=== PATIENT | male | born 1935 | race Caucasian/White ===

== ENCOUNTER 2018-06-21 09:35 | Inpatient (IN) | payer OTHER ==
[2018-06-21 10:23] LABS: Protime INR 1.11
[2018-06-21 10:33] LABS: Absolute Lymphocytes (CBC) 0.6 K/uL (0.7-4.9); Absolute Monocytes 1.6 K/uL (0.1-1.3); Absolute Neutrophil 12.2 K/uL (1.8-8.0); Basophils % 0.4 % (0-1.3); Eosinophils % 1.2 % (0-4.4); Hematocrit 34.8 % (39.6-49.0); Lymphocytes % 4.4 % (15.3-44.8); MPV 8.6 fL (7.6-11.3); Monocytes % 10.6 % (3.3-12.3); RBC Red Blood Cell Count 4.04 M/uL (4.33-5.43)
[2018-06-21 10:36] LABS: ALT/SGPT 15 U/L (12-78); AST/SGOT 11 U/L (15-37); Albumin 2.8 g/dL (3.4-5.0); Alkaline Phosphatase 83 U/L (45-117); BUN Blood Urea Nitrogen 28 mg/dL (7-18); Bicarbonate 39 mmol/L (21-32); Bilirubin Direct 0.1 mg/dL (0-0.2); Bilirubin Total 0.3 mg/dL (0.2-1.0); Glucose Level 110 mg/dL (74-106); Magnesium 2.2 mg/dL (1.8-2.4); NT PRO-BNP 178 pg/mL (<450); Potassium 3.6 mmol/L (3.5-5.1); Protein, Total 6.7 g/dL (6.4-8.2); Sodium Level 144 mmol/L (136-145); Troponin (Emerg Dept Use Only) < 0.02 ng/mL (0.0-0.045)
[2018-06-21] MEDS ORDERED: ALBUTEROL 2.5 MG/3 ML NEB SOL ONE (10:37)
[2018-06-21] MEDS ORDERED: METHYLPREDNISOLONE 125 MG INJ ONE (10:37)
[2018-06-21] MEDS ORDERED: IPRATROPIUM BROM 0.5MG/2.5ML ONE (10:37)
[2018-06-21] MEDS ORDERED: AZITHROMYCIN 500 MG/250 ML BAG ONE (10:38)
[2018-06-21] MEDS ORDERED: FAMOTIDINE 20 MG/2 ML VIAL IV ONE (10:38)
[2018-06-21] MEDS ORDERED: CEFTRIAXONE/SWI 1gm 1 GM/10 ML SYR ONE (10:38)
--- NOTE | 2018-06-21 11:26 | RAD REPORT ---
EXAM DESCRIPTION: RAD - Chest Single View - 06/21/2018 10:14 am CLINICAL HISTORY: Shortness of breath, COPD, bronchitis recent diagnosis COMPARISON: May 24 TECHNIQUE: AP portable chest image was obtained 0959 hours . FINDINGS: Focal parenchymal opacification in the left perihilar region has increased and extends lat erally to the chest wall. Patient has lung markings prominent overall from COPD. Heart and vasculatur e are normal. No measurable pleural effusion and no pneumothorax. No acute bony abnormality seen. No acute aortic findings suspected. IMPRESSION: Increasing lung parenchymal opacification in the mid left lung field suspicious for new or progressive pneumonia. Baseline COPD is present and could mask additional mild interstitial edema or infiltrate.
--- NOTE | 2018-06-21 12:06 | ER ---
Nurse's Notes [facility] Name: Mike Stewart Age: 83 yrs Sex: Male : 1935 Arrival Date: 06/21/2018 Time: 09:35 Bed 6 Private MD: Diagnosis: Chronic obstructive pulmonary disease with (acute) exacerbation;Pneumonia, unspecified organism;Elevated white blood cell count;Weakness Presentation: 06/21 09:37 Presenting complaint: EMS states: Pt c/o SOB x 3 weeks, hx of COPD and dx w/ bronchitis ph 3 weeks ago, completed antibiotics approx a week and a half ago, reports that SOB has been increasingly worse over the past few days, Spo2 84% on 3L home o2, pt also c/o productive cough w/ yellow sputum, Spo2 improved to 97% after neb tx. Transition of care: patient was not received from another setting of care. Onset of symptoms was June 21, 2018. Risk Assessment: Do you want to hurt yourself or someone else? Patient reports no desire to harm self or others. Initial Sepsis Screen: Does the patient meet any 2 criteria? RR > 20 per min. Does the patient have a suspected source of infection? Yes: Productive cough/pneumonia. Care prior to arrival: Medication(s) given: Albuterol Neb x 1. 09:37 Method Of Arrival: EMS: [facility] ph 09:37 Acuity: ARIELA 3 ph Historical: - Allergies: 09:45 LITHIUM DERIVITIVES; ph - Home Meds: 13:44 allopurinol 300 mg Oral tab 1 tab 2 times per day [Active]; anoro ellipta 1 inhalation ph daily [Active]; aspirin 81 mg Oral chew 1 tab once daily [Active]; carvedilol 12.5 mg Oral tab 1 tab 2 times per day [Active]; Wellbutrin 150 mg daily Oral [Active]; Combivent Inhl 8 inhalations daily and prn [Active]; prednisone 10 mg Oral tab 1 tab once daily [Active]; finasteride 5 mg Oral tab 1 tab once daily [Active]; furosemide 40 mg Oral tab 1 tab once daily [Active]; Zocor 80 mg Oral tab daily [Active]; omeprazole 40 mg Oral cpDR 1 cap once daily [Active]; Xanax 0.5 mg Oral tab 1 tab daily [Active]; multac 400mg daily [Active]; - PMHx: 09:45 COPD; Hypertension; Renal Disease; ph - PSHx: 09:45 Tonsillectomy; Appendectomy; hemorrhoidectomy; parathyroidectomy; micro lumbar ph laminectomy; - Immunization history:: Adult Immunizations unknown. - Social history:: Smoking status: Patient/guardian denies using tobacco. - Ebola Screening: : No symptoms or risks identified at this time. Screenin:07 Abuse screen: Denies threats or abuse. Denies injuries from another. Nutritional ph screening: No deficits noted. Tuberculosis screening: No symptoms or risk factors identified. Fall Risk None identified. Assessment: 09:45 General: Appears in no apparent distress. comfortable, Behavior is calm, cooperative, ph appropriate for age, Denies fever. Pain: Denies pain. Neuro: Level of Consciousness is awake, alert, obeys commands, Oriented to person, place, time, situation. Cardiovascular: Denies chest pain, Capillary refill < 3 seconds in bilateral fingers Patient's skin is warm and dry. Rhythm is regular. Respiratory: Reports shortness of breath at rest cough that is productive, Airway is patent Respiratory effort is labored, Respiratory pattern is tachypnea Breath sounds are coarse bilaterally. GI: No signs and/or symptoms were reported involving the gastrointestinal system. Derm: Skin is intact, is healthy with good turgor, Skin is pink, warm \T\ dry. Musculoskeletal: Circulation, motion, and sensation intact. Range of motion: intact in all extremities. 11:05 Reassessment: Patient appears in no apparent distress at this time. Patient and/or ph family updated on plan of care and expected duration. Pain level reassessed. Patient is alert, oriented x 3, equal unlabored respirations, skin warm/dry/pink. ERP at bedside to speak w/ pt and family about being admitted. 12:30 Reassessment: Patient appears in no apparent distress at this time. Patient and/or ph family updated on plan of care and expected duration. Pain level reassessed. Patient is alert, oriented x 3, equal unlabored respirations, skin warm/dry/pink. 13:30 Reassessment: Patient appears in no apparent distress at this time. Patient and/or ph family updated on plan of care and expected duration. Pain level reassessed. Patient is alert, oriented x 3, equal unlabored respirations, skin warm/dry/pink. 14:59 Reassessment: Patient appears in no apparent distress at this time. Patient and/or ph family updated on plan of care and expected duration. Pain level reassessed. Patient is alert, oriented x 3, equal unlabored respirations, skin warm/dry/pink. Pt eating lunch, tolerating well, attempted to call report to 4th floor, receiving nurse unavailable. Vital Signs: 09:42 BP 143 / 67; Pulse 86; Resp 26; Temp 98.3(TE); Pulse Ox 93% on 3 lpm NC; Weight 81.65 ph kg; Height 5 ft. 10 in. (177.80 cm); Pain 0/10; 11:06 BP 127 / 72; Pulse 74; Resp 22; Pulse Ox 95% on 3 lpm NC; ph 12:15 BP 114 / 66; Pulse 76; Resp 22; Pulse Ox 94% on 3 lpm NC; ph 13:37 BP 127 / 67; Pulse 78; Resp 22; Temp 97.8; Pulse Ox 99% on 100% Nebulizer Mask; ph 09:42 Body Mass Index 25.83 (81.65 kg, 177.80 cm) ph ED Course: 09:35 Patient arrived in ED. ph 09:35 Eric Hebert MD is Attending Physician. elier 09:35 Karina Griffin RN is Primary Nurse. ph 09:41 Triage completed. ph 09:45 Arm band placed on. ph 09:45 First set of blood cultures drawn by me. jb1 10:00 Second set of blood cultures drawn by mn. jb1 10:07 EKG done, by diagnostics tech. reviewed by Eric Hebert MD. Initial lab(s) drawn, by mn, sent jb1 to lab. Flu and/or RSV swab sent to lab. Inserted saline lock: 22 gauge in right antecubital area, using aseptic technique. Blood collected. 10:11 X-ray completed. Portable x-ray completed in exam room. Patient tolerated procedure bb2 well. 10:14 XRAY Chest (1 view) In Process Unspecified. EDMS 11:07 Patient has correct armband on for positive identification. Bed in low position. Call ph light in reach. Side rails up X 1. Pulse ox on. NIBP on. Warm blanket given. 12:01 Lalo Carmona MD is Hospitalizing Provider. elier 14:58 No provider procedures requiring assistance completed. Patient admitted, IV remains in ph place. Administered Medications: 10:40 Drug: Albuterol - atroVENT (3:1) (2.5 mg - 0.5 mg) 3 ml Route: Nebulizer; ph 15:03 Follow up: Response: No adverse reaction ph 10:40 Drug: SOLU-Medrol 125 mg Route: IVP; Site: right antecubital; ph 11:30 Follow up: Response: No adverse reaction ph 10:42 Drug: Rocephin - (cefTRIAXone) 1 grams Route: IVPB; Infused Over: 30 mins; Site: right ph antecubital; 11:15 Follow up: Response: No adverse reaction; IV Status: Completed infusion ph 10:42 Drug: Pepcid 20 mg Route: IVP; Site: right antecubital; ph 15:02 Follow up: Response: No adverse reaction ph 11:30 Drug: Zithromax 500 mg Route: IVPB; Infused Over: 1 hrs; Site: right antecubital; ph 12:45 Follow up: Response: No adverse reaction; IV Status: Completed infusion ph 13:27 Drug: Xopenex 2.5 mg Route: Inhalation; ph 15:02 Follow up: Response: No adverse reaction ph 13:27 Drug: Decadron - Dexamethasone 10 mg Route: IVP; Site: right antecubital; ph 15:01 Follow up: Response: No adverse reaction ph Outcome: 12:04 Decision to Hospitalize by Provider. [facility] 14:59 Condition: stable ph 15:25 Patient left the ED. ph 15:25 Admitted to Tele via stretcher, with oxygen, with chart. ph 15:25 Instructed on the need for admit. Signatures: Dispatcher [employer] EDMonster Martinez1 Eric Hebert MD MD cha Hall, Patricia, RN RN Umm Christensen2
--- NOTE | 2018-06-21 12:06 | EDPHYS ---
Physician Documentation [facility] Name: Mike Stewart Age: 83 yrs Sex: Male : 1935 Arrival Date: 06/21/2018 Time: 09:35 Bed 6 Private MD: STEFFEN Physician Eric Hebert Historical: - Allergies: 06/21 09:45 LITHIUM DERIVITIVES; ph - Home Meds: 13:44 allopurinol 300 mg Oral tab 1 tab 2 times per day [Active]; anoro ellipta 1 inhalation ph daily [Active]; aspirin 81 mg Oral chew 1 tab once daily [Active]; carvedilol 12.5 mg Oral tab 1 tab 2 times per day [Active]; Wellbutrin 150 mg daily Oral [Active]; Combivent Inhl 8 inhalations daily and prn [Active]; prednisone 10 mg Oral tab 1 tab once daily [Active]; finasteride 5 mg Oral tab 1 tab once daily [Active]; furosemide 40 mg Oral tab 1 tab once daily [Active]; Zocor 80 mg Oral tab daily [Active]; omeprazole 40 mg Oral cpDR 1 cap once daily [Active]; Xanax 0.5 mg Oral tab 1 tab daily [Active]; multac 400mg daily [Active]; - PMHx: 09:45 COPD; Hypertension; Renal Disease; ph - PSHx: 09:45 Tonsillectomy; Appendectomy; hemorrhoidectomy; parathyroidectomy; micro lumbar ph laminectomy; - Immunization history:: Adult Immunizations unknown. - Social history:: Smoking status: Patient/guardian denies using tobacco. - Ebola Screening: : No symptoms or risks identified at this time. Vital Signs: 09:42 BP 143 / 67; Pulse 86; Resp 26; Temp 98.3(TE); Pulse Ox 93% on 3 lpm NC; Weight 81.65 ph kg; Height 5 ft. 10 in. (177.80 cm); Pain 0/10; 11:06 BP 127 / 72; Pulse 74; Resp 22; Pulse Ox 95% on 3 lpm NC; ph 12:15 BP 114 / 66; Pulse 76; Resp 22; Pulse Ox 94% on 3 lpm NC; ph 13:37 BP 127 / 67; Pulse 78; Resp 22; Temp 97.8; Pulse Ox 99% on 100% Nebulizer Mask; ph 09:42 Body Mass Index 25.83 (81.65 kg, 177.80 cm) ph MDM: 09:35 Patient medically screened. [facility] 06/21 09:39 Order name: Basic Metabolic Panel [facility] 06/21 09:39 Order name: CBC with Diff [facility] 06/21 09:39 Order name: LFT's; Complete Time: 11:44 [facility] 06/21 09:39 Order name: Magnesium; Complete Time: 11:44 [facility] 06/21 09:39 Order name: NT PRO-BNP; Complete Time: 11:44 [facility] 06/21 09:39 Order name: PT-INR; Complete Time: 11:44 [facility] 06/21 09:39 Order name: Troponin (emerg Dept Use Only); Complete Time: 11:44 [facility] 06/21 09:39 Order name: Blood Culture Adult (2) [facility] 06/21 09:39 Order name: Procalcitonin; Complete Time: 11:44 [facility] 06/21 09:39 Order name: Lactate; Complete Time: 11:44 [facility] 06/21 09:39 Order name: Influenza Screen (a \T\ B); Complete Time: 11:44 [facility] 06/21 09:39 Order name: Urine Culture [facility] 06/21 09:39 Order name: Basic Metabolic Panel; Complete Time: 11:44 [facility] 06/21 09:39 Order name: CBC with Automated Diff; Complete Time: 11:44 [facility] 06/21 09:39 Order name: XRAY Chest (1 view); Complete Time: 11:44 [facility] 06/21 09:39 Order name: EKG; Complete Time: 09:40 [facility] 06/21 09:39 Order name: Cardiac monitoring; Complete Time: 10:08 [facility] 06/21 09:39 Order name: EKG - Nurse/Tech; Complete Time: 10:08 [facility] 06/21 09:39 Order name: IV Saline Lock; Complete Time: 10:08 [facility] 06/21 09:39 Order name: Labs collected and sent; Complete Time: 10:08 [facility] 06/21 09:39 Order name: O2 Per Protocol; Complete Time: 10:08 [facility] 06/21 09:39 Order name: O2 Sat Monitoring; Complete Time: 10:08 [facility] 06/21 12:57 Order name: Diet Heart Healthy; Complete Time: 12:58 ph Administered Medications: 10:40 Drug: Albuterol - atroVENT (3:1) (2.5 mg - 0.5 mg) 3 ml Route: Nebulizer; ph 15:03 Follow up: Response: No adverse reaction ph 10:40 Drug: SOLU-Medrol 125 mg Route: IVP; Site: right antecubital; ph 11:30 Follow up: Response: No adverse reaction ph 10:42 Drug: Rocephin - (cefTRIAXone) 1 grams Route: IVPB; Infused Over: 30 mins; Site: right ph antecubital; 11:15 Follow up: Response: No adverse reaction; IV Status: Completed infusion ph 10:42 Drug: Pepcid 20 mg Route: IVP; Site: right antecubital; ph 15:02 Follow up: Response: No adverse reaction ph 11:30 Drug: Zithromax 500 mg Route: IVPB; Infused Over: 1 hrs; Site: right antecubital; ph 12:45 Follow up: Response: No adverse reaction; IV Status: Completed infusion ph 13:27 Drug: Xopenex 2.5 mg Route: Inhalation; ph 15:02 Follow up: Response: No adverse reaction ph 13:27 Drug: Decadron - Dexamethasone 10 mg Route: IVP; Site: right antecubital; ph 15:01 Follow up: Response: No adverse reaction ph Disposition: 06/21/18 12:04 Hospitalization ordered by Lalo Carmona for Inpatient Admission. Preliminary diagnosis are Chronic obstructive pulmonary disease with (acute) exacerbation, Pneumonia, unspecified organism, Elevated white blood cell count, Weakness. - Bed requested for Telemetry/MedSurg (Inpatient). - Status is Inpatient Admission. ph - Condition is Fair. - Problem is new. - Symptoms have improved. UTI on Admission? No Signatures: Dispatcher [employer] Maryann Wilcox RN RN dw Anderson, Corey, MD MD cha Hall, Patricia, RN RN ph Corrections: (The following items were deleted from the chart) 13:12 12:04 Hospitalization Ordered by Lalo Carmona MD for Inpatient Admission. Preliminary dw diagnosis is Chronic obstructive pulmonary disease with (acute) exacerbation; Pneumonia, unspecified organism; Elevated white blood cell count; Weakness. Bed requested for Telemetry/MedSurg (Inpatient). Status is Inpatient Admission. Condition is Fair. Problem is new. Symptoms have improved. UTI on Admission? No. [facility] 15:25 13:12 06/21/2018 12:04 Hospitalization Ordered by Lalo Carmona MD for Inpatient Admission. Preliminary diagnosis is Chronic obstructive pulmonary disease with (acute) exacerbation; Pneumonia, unspecified organism; Elevated white blood cell count; Weakness. Bed requested for Telemetry/MedSurg (Inpatient). Status is Inpatient Admission. Condition is Fair. Problem is new. Symptoms have improved. UTI on Admission? No.
[2018-06-21] MEDS ORDERED: DEXAMETHASONE 10 MG/ML VIAL ONE (13:28)
[2018-06-21] MEDS ORDERED: LEVALBUTEROL 1.25 MG/3 ML NEB ONE (13:29)
--- NOTE | 2018-06-21 14:46 | EKG ---
Test Date: 2018-06-21 Test Time: 09:44:58 [place] Husker: MARYLIN MEASUREMENT RESULTS: Intervals: Rate: 80 CO: 258 QRSD: 102 QT: 362 QTc: 417 [place]: P: 61 CO: 258 QRS: 61 T: 86 INTERPRETIVE STATEMENTS: Sinus rhythm with 1st degree AV block Otherwise normal ECG Compared to ECG 05/26/2017 06:33:49 No significant changes Electronically Signed On 06-21-18 14:44:17 IP NETWORK ARCHITECT by Reji Curiel
[2018-06-21] MEDS: IPRATROPIUM BROM 0.5MG/2.5ML NEB SCH ×2 (15:52→19:55)
[2018-06-21] MEDS ORDERED: ACETAMINOPHEN 500 MG TAB PO PRN (15:52)
[2018-06-21] MEDS: ALBUTEROL 2.5 MG/3 ML NEB SOL NEB SCH ×2 (15:52→19:55)
[2018-06-21 16:21] VITALS: BMI 25.9
[2018-06-21] MEDS: HEPARIN 5000 UNIT/ML 1 ML VIAL SQ SCH (17:27)
[2018-06-21] MEDS ORDERED: ALPRAZOLAM 0.5 MG TABLET PO PRN (18:48)
[2018-06-21] MEDS ORDERED: Levofloxacin500mg IV 500 MG/100 ML BAG IV SCH (19:00)
--- NOTE | 2018-06-21 19:59 | P.HP ---
Certification for Inpatient Patient admitted to: Inpatient Practitioner: I am a practitioner with admitting privileges, knowledge of patient current condition, hospital course, and medical plan of care. Services: Services provided to patient in accordance with Admission requirements found in Title 42 Section 412.3 of the Code of Federal Regulations Patient History Date of Service: 06/21/18 Primary Care Provider: Dr. Juarez Reason for admission: Shortness of breath History of Present Illness: This is an 83 yr old Male with a history of COPD on 2L Home oxygen admitted for shortness of breath. Per patient, he has had progressively worsening shortness of breath for the past 4-5 days where his regular COPD medications have not been helping. On the morning of admission, pt states that he felt like he was not able to catch his breath which is what brought him to the ED. He is also endorsing feeling a little unbalanced for the fast few days. States that when he stands up, he is a little shaky on his feet, which is new for him. Positive for cough. Negative for chest pain, headache, vision changes, rash, GI or problems. In the ED, he was satting a little low, and he was found to have a left lobe pneumonia on his chest xray. At the time of my exam, he was AAOx3, in no acute distress and his breathing had improved. Allergies lithium Adverse Reaction (Verified 01/24/16 10:59) Itching/Hives/Rash LITHIUM DERIVITIVES Allergy (Intermediate, Uncoded 01/24/16 10:59) Anaphylaxis Home Medications: Aspirin Chewable [Aspirin Chewable*] 81 mg PO DAILY 02/03/15 Dronedarone [Multaq*] 400 mg PO BID 02/03/15 Finasteride 5 mg PO DAILY 02/03/15 Furosemide [Lasix] 40 mg PO DAILY 02/03/15 buPROPion HCl [Wellbutrin Sr] 150 mg PO DAILY 02/03/15 Allopurinol [Zyloprim*] 300 mg PO BID 01/17/16 Carvedilol [Coreg*] 12.5 mg PO BID 01/17/16 predniSONE [Deltasone*] 10 mg PO DAILY 01/17/16 Simvastatin [Zocor] 1 tab PO BEDTIME 05/25/17 Umeclidinium Brm/Vilanterol Tr [Anoro Ellipta 62.5-25 Mcg INH] 1 inhaler IH DAILY 05/25/17 ALPRAZolam [Xanax] 0.5 mg PO BEDTIME PRN 06/21/18 Ipratropium/Albuterol Sulfate [Combivent Respimat Inhal [place]] 1 gm IH Q2H PRN 06/21/18 Omeprazole [Prilosec] 1 tab PO DAILY 06/21/18 - Past Medical/Surgical History Has patient received pneumonia vaccine in the past: Yes Diabetic: No -: HTN -: COPD O2 dependent -: renal disease -: htn -: high cholesterol -: gerd -: tonsillectomy -: appy -: hemorrhoidectomy -: parothyroidectomy -: micro lumbar laminectomy - Family History Father -: Other (see notes) Notes: aortic rupture Mother -: Heart disease - Social History Smoking Status: Never smoker Alcohol use: No CD- Drugs: No Caffeine use: Yes Place of Residence: Home Review of Systems 10-point ROS is otherwise unremarkable Physical Examination - Vital Signs Temperature: 97.9 F Blood Pressure: 133/63 Pulse: 83 Respirations: 20 Pulse Ox (%): 93 - Physical Exam General: Alert, In no apparent distress, Oriented x3 HEENT: Atraumatic, PERRLA, Mucous membr. moist/pink, EOMI, Sclerae nonicteric Neck: Supple, 2+ carotid pulse no bruit, No LAD, Without JVD or thyroid abnormality Respiratory: Dull, Crackles/rales, Expiratory wheezes Cardiovascular: Regular rate/rhythm, Normal S1 S2 Gastrointestinal: Normal bowel sounds, No tenderness Musculoskeletal: No tenderness Integumentary: No rashes Neurological: Normal gait, Normal speech, Normal strength at 5/5 x4 extr, Normal tone, Normal affect Lymphatics: No axilla or inguinal lymphadenopathy - Studies Laboratory Data (last 24 hrs) 06/21/18 10:00: PT 13.1 H, INR 1.11 06/21/18 10:00: WBC 14.6 H, Hgb 10.5 L, Hct 34.8 L, Plt Count 224 06/21/18 10:00: Sodium 144, Potassium 3.6, BUN 28 H, Creatinine 1.32 H, Glucose 110 H, Magnesium 2.2, Total Bilirubin 0.3, AST 11 L, ALT 15, Alkaline Phosphatase 83 Microbiology Data (last 24 hrs): 06/21/18 10:00 Nasopharnyx Influenza Type A Antigen Screen - Final 06/21/18 10:00 Nasopharnyx Influenza Type B Antigen Screen - Final Assessment and Plan - Problems (Diagnosis) (1) COPD (chronic obstructive pulmonary disease) Onset Date: 01/18/16 Current Visit: No Status: Chronic Qualifiers: COPD type: COPD with acute exacerbation Qualified Code(s): J44.1 - Chronic obstructive pulmonary disease with (acute) exacerbation (2) Pneumonia Onset Date: 05/26/17 Current Visit: No Status: Acute (3) Respiratory distress Onset Date: 02/05/15 Current Visit: No Status: Acute (4) Hypertension Current Visit: Yes Status: Chronic Qualifiers: Hypertension type: essential hypertension Qualified Code(s): I10 - Essential (primary) hypertension (5) Chronic kidney disease Current Visit: Yes Status: Chronic Qualifiers: Chronic kidney disease stage: unspecified stage Qualified Code(s): N18.9 - Chronic kidney disease, unspecified (6) GERD (gastroesophageal reflux disease) Current Visit: Yes Status: Chronic Qualifiers: Esophagitis presence: esophagitis presence not specified Qualified Code(s) : K21.9 - Gastro-esophageal reflux disease without esophagitis - Plan This is an 83 yr old male with: Pneumonia (Acute 05/26/17) J18.9 IV antibiotics Oxygen as needed COPD (chronic obstructive pulmonary disease) (Chronic 01/18/16) J44.9 IV steroids, nebulizer treatments, and oxygen as needed Respiratory distress (Acute 02/05/15) R06. Improved. Almost back to baseline oxygen Hypertension (Chronic) I10 Stable, will restart home medications Chronic kidney disease (Chronic) N18.9 Unsure of stage or baseline Will continue to monitor creatinine with am labs Avoid nephrotoxic agents GERD (gastroesophageal reflux disease) (Chronic) K21.9 Stable, start home medications DVT prophylaxis: Lovenox GI prophylaxis: protonix Diet: Heart healthy Dispo: Admit to floor with tele. Monitor, pending symptomatic improvement. - Advance Directives Does patient have a Living Will: No Does patient have a Durable POA for Healthcare: No
[2018-06-21] MEDS: DRONEDARONE 400 MG TAB PO SCH (20:40)
[2018-06-21] MEDS: ALLOPURINOL 300 MG TAB PO SCH (20:41)
[2018-06-21] MEDS: CARVEDILOL 12.5 MG TAB PO SCH (20:43)
[2018-06-21] MEDS ORDERED: POTASSIUM CL SA 10 MEQ TAB PO ONE (21:00)
[2018-06-21] MEDS ORDERED: ATORVASTATIN 40 MG TAB PO SCH (21:00)
[2018-06-22] MEDS: HEPARIN 5000 UNIT/ML 1 ML VIAL SQ SCH ×2 (00:16→08:57)
[2018-06-22] MEDS: METHYLPREDNISOLONE 125 MG INJ IV SCH ×3 (00:17→11:15)
[2018-06-22] MEDS: ALBUTEROL 2.5 MG/3 ML NEB SOL NEB SCH ×3 (02:15→13:38)
[2018-06-22] MEDS: IPRATROPIUM BROM 0.5MG/2.5ML NEB SCH ×3 (02:15→13:38)
[2018-06-22 05:54] LABS: Absolute Lymphocytes (CBC) 0.4 K/uL (0.7-4.9); Absolute Monocytes 0.2 K/uL (0.1-1.3); Absolute Neutrophil 11.3 K/uL (1.8-8.0); Basophils % 0.1 % (0-1.3); Lymphocytes % 3.3 % (15.3-44.8); MPV 8.6 fL (7.6-11.3); Monocytes % 1.7 % (3.3-12.3); RBC Red Blood Cell Count 3.84 M/uL (4.33-5.43)
[2018-06-22 06:15] LABS: Albumin 2.5 g/dL (3.4-5.0); Bilirubin Total 0.2 mg/dL (0.2-1.0); Potassium 4.6 mmol/L (3.5-5.1); Protein, Total 6.2 g/dL (6.4-8.2)
[2018-06-22] MEDS ORDERED: PANTOPRAZOLE 40MG TABLET PO SCH (06:30)
[2018-06-22 07:16] LABS: Platelet Estimate ADEQ
[2018-06-22 07:17] LABS: Blood Morphology Comment NOT SEEN (NOT SEEN)
[2018-06-22 08:24] LABS: Urine Appearance CLEAR; Urine Bilirubin NEGATIVE (NEG); Urine Blood TRACE (NEG); Urine Color YELLOW; Urine Glucose NEGATIVE (NEG); Urine Protein NEGATIVE (NEG); Urine Urobilinogen 0.2 mg/dL (0.2-1.0)
[2018-06-22 08:27] LABS: Urine Microscopic Reflex ORDER UMIC
[2018-06-22 08:37] LABS: Urine Bacteria NONE SEEN /HPF (NONE SEEN); Urine Culture Reflex Order NOT NEEDED
[2018-06-22] MEDS: DRONEDARONE 400 MG TAB PO SCH (08:57)
[2018-06-22] MEDS: ALLOPURINOL 300 MG TAB PO SCH (08:58)
[2018-06-22] MEDS: CARVEDILOL 12.5 MG TAB PO SCH (08:58)
[2018-06-22] MEDS ORDERED: HOME MED 1 EA UNK (Omeprazole [Prilosec] 1 TAB) PO SCH (09:00)
[2018-06-22] MEDS ORDERED: FUROSEMIDE 20 MG TABLET PO SCH (09:00)
[2018-06-22] MEDS ORDERED: BUPROPRION HCL S.R. 150MG TAB PO SCH (09:00)
[2018-06-22] MEDS ORDERED: FINASTERIDE 5 MG TAB PO SCH (09:00)
[2018-06-22] MEDS ORDERED: ASPIRIN 81 MG CHEWABLE TABLET PO SCH (09:00)
[2018-06-22 12:41] VITALS: BP 130/69; TEMP 97.9
[2018-06-22 13:57] VITALS: O2SAT 92
--- NOTE | 2018-06-22 15:22 | DS ---
Discharge Diagnoses: 1. Chronic obstructive pulmonary disease exacerbation, improved. 2. ? pneumonia. 3. Respiratory distress secondary to chronic obstructive pulmonary disease exacerbation. 4. Hypertension. 5. Chronic renal insufficiency. 6. Acid reflux. 7. Overweight. Consult: None. Procedure: Chest x-ray done on admission showed increasing lung parenchymal opacification in the mid left lung field positive for pneumoniae, baseline COPD present. History Of Present Illness: Please refer to Dr. Carmona admission note from yesterday. Hospital Course: Initially, the patient presented with progressive shortness of breath and x-ray showed questionable left lung infiltrate. The patient was started on IV antibiotic with Levaquin as well as the Solu-Medrol. The patient felt much better today and he demanded to go home. He continues to be on oxygen , but he has no oxygen at home. He is followed by Dr. Ross as outpatient. So, we discharge patient on Levaquin 500 mg for 7 days. We will continue prednisone 10 mg at baseline. He will follow up with Dr. Ross in this coming week to make sure he is back to his baseline. Overnight, the patient did not spike any fever. His temperature max was 97.2 Discharge Physical Examination: Current Vital Signs: Blood pressure 130/69, respiratory rate 18, pulse 74, temperature 97.9. General: The patient is alert and oriented x3. He does not look in any distress. HEENT: Atraumatic and normocephalic. PERRLA. Oral mucosa is moist. Neck: Supple. No JVD. Chest: Clear to auscultation. There is no expiratory wheezing. No crackles. Heart: Regular rate and rhythm. S1 and S2 normal. No gallop or murmur. Abdomen: Soft, nontender. No masses. No hepatosplenomegaly. Positive bowel sounds. Extremities: No clubbing, cyanosis, or edema. No calf tenderness. Neurologic: Grossly intact. Discharge Condition: Stable. Discharge Diet: Cardiac. Discharge Followup: With Dr. Ross this week. Follow up with his primary care physician in 1 week. Discharge Activity: As tolerated. Discharge Medications: Levaquin 500 mg orally once a day for 7 days. Otherwise take home medication, see list on discharge summary. VS reviewed General: He is alert and oriented x3. Does not look in any distress. HEENT: Atraumatic and normocephalic. PERRLA. Oral mucosa is moist. Neck: Supple. No JVD. Chest: Clear to auscultation Heart: Regular rate and rhythm. S1, S2 normal. No S3 or S4. Abdomen: Soft and obese. Positive bowel sounds. Extremities: No clubbing or cyanosis. no edema stasis dermatitis noted. Neurologic: Grossly intact. PHILIP/MANOJ Voice ID: [id number] Report ID: [id number] MTDD
[2018-06-22] MEDS ORDERED: Levofloxacin 250mg IV 250 MG/50 ML BAG IV SCH (19:00)
== END 2018-06-22 14:58 | disposition home or self-care (01) | DRG 190 ==
LOC: ER 09:35 → ERHOLD 12:36 → 4TH 15:12
PROVIDERS: ADMIT Family Medicine; ATTEND Internal Medicine
DX: J44.0 Chronic obstructive pulmonary disease with (acute) lower respiratory infection (principal); J18.9 Pneumonia, unspecified organism; J44.1 Chronic obstructive pulmonary disease with (acute) exacerbation; R06.03 Acute respiratory distress; I12.9 Hypertensive chronic kidney disease with stage 1 through stage 4 chronic kidney disease, or unspecified chronic kidney disease; N18.9 Chronic kidney disease, unspecified; K21.9 Gastro-esophageal reflux disease without esophagitis; E66.3 Overweight
CPT/HCPCS: 36415; 71045; 80048; 80053; 80076; 81003; 81015; 83605; 83735; 83880; 84145; 84484; 85025; 85610; 87040; 87086; 87088; 87804; 93005; 94640; 94760; 96365; 96367; 96375; 99285; J0456; J0696; J1100; J1644; J2930

== ENCOUNTER 2018-09-07 09:30 | Inpatient (IN) | payer OTHER ==
[2018-09-07] MEDS ORDERED: IPRATROPIUM BROM 0.5MG/2.5ML ONE (09:50)
[2018-09-07] MEDS ORDERED: METHYLPREDNISOLONE 40 MG INJ ONE (09:50)
[2018-09-07] MEDS ORDERED: ALBUTEROL 2.5 MG/3 ML NEB SOL ONE (09:50)
[2018-09-07 09:54] LABS: Absolute Lymphocytes (CBC) 0.7 K/uL (0.7-4.9); Absolute Monocytes 0.8 K/uL (0.1-1.3); Absolute Neutrophil 13.2 K/uL (1.8-8.0); Basophils % 0.5 % (0-1.3); Eosinophils % 1.1 % (0-4.4); Lymphocytes % 4.7 % (15.3-44.8); MPV 8.3 fL (7.6-11.3); Monocytes % 5.2 % (3.3-12.3); RBC Red Blood Cell Count 4.28 M/uL (4.33-5.43)
[2018-09-07 09:55] LABS: Protime INR 1.08
--- NOTE | 2018-09-07 10:05 | RAD REPORT ---
EXAM DESCRIPTION: RAD - Chest Single View - 09/07/2018 9:50 am CLINICAL HISTORY: SOB Chest pain. COMPARISON: Chest Single View dated 06/21/2018; Chest Pa And Lat (2 Views) dated 05/24/2018; Chest S sarah View dated 05/26/2017; Chest Single View dated 05/25/2017 FINDINGS: Portable technique limits examination quality. Emphysematous changes are present with ill-defined opacities in both lung bases and left perihilar mo derate-size opacity, appearing quite similar to comparative studies. The heart is normal in size. No displaced fractures.CT chest followup would be useful for further evaluation of the left perihilar op acity.
[2018-09-07 10:13] LABS: ALT/SGPT 19 U/L (12-78); AST/SGOT 18 U/L (15-37); Albumin 2.9 g/dL (3.4-5.0); Alkaline Phosphatase 90 U/L (45-117); BUN Blood Urea Nitrogen 27 mg/dL (7-18); Bicarbonate 39 mmol/L (21-32); Bilirubin Direct < 0.1 mg/dL (0-0.2); Bilirubin Total 0.2 mg/dL (0.2-1.0); Glucose Level 197 mg/dL (74-106); NT PRO-BNP 448 pg/mL (<450); Potassium 4.2 mmol/L (3.5-5.1); Protein, Total 6.6 g/dL (6.4-8.2); Sodium Level 145 mmol/L (136-145); Troponin (Emerg Dept Use Only) < 0.02 ng/mL (0.0-0.045)
[2018-09-07 10:23] LABS: Anisocytosis 1+; Blood Morphology Comment NOTED (NOT SEEN); Hypochromasia 2+; Ovalocytes 1+; Platelet Estimate ADEQ; Polychromasia 1+; Urine White Blood Cell Casts OK
--- NOTE | 2018-09-07 11:20 | RAD REPORT ---
EXAM DESCRIPTION: CT - Thorax W/ Con CLINICAL HISTORY: Chest pain shortness of breath COMPARISON: THORAX WO CONTRAST dated 12/25/2014; Chest Single View dated 09/07/2018 FINDINGS: Prominent COPD is seen. Linear scarring is present in both upper lobes. Soft tissue mass i s present measuring 3.8 x 3.4 cm adjacent to the left hilum containing internal area of lucency. Elenita ins of the lesion are spiculated. No pleural thickening or pleural effusion. No pneumothorax. No axillary, mediastinal or hilar adenopathy. Prominent aortic atherosclerosis. No concerning bony finding. Several right renal cysts identified. All CT scans are performed using dose optimization technique as appropriate and may include automated exposure control or mA/KV adjustment according to patient size. IMPRESSION: Spiculated soft tissue mass (3.8 x 3.4 cm) is seen adjacent to the left hilum with inter nal cavitary component.Most likely, this represents a cavitary neoplasm. Bronchoscopy followup would be suggested.
[2018-09-07] MEDS ORDERED: NA CHLORIDE 0.9% 250 ML ONE (11:21)
--- NOTE | 2018-09-07 12:17 | EDPHYS ---
Physician Documentation [facility] Name: Mike Stewart Age: 83 yrs Sex: Male : 1935 Arrival Date: 09/07/2018 Time: 09:29 Bed 8 Private MD: ED Physician Woody Gamez HPI: 09/07 09:32 This 83 yrs old Male presents to ER via Unassigned with complaints of cp Shortness Of Breath. 09:32 The patient has shortness of breath at rest. Onset: The symptoms/episode began/occurred cp yesterday. 09:32 Duration: The symptoms are continuous, and are steadily getting worse. The patient's cp shortness of breath is aggravated by light activity, talking. Associated signs and symptoms: Pertinent negatives: chest pain, diaphoresis, fever, hemoptysis. 09:32 Severity of symptoms: in the emergency department the symptoms are unchanged despite cp home interventions. Historical: - Allergies: 09:43 LITHIUM DERIVITIVES; bp - Home Meds: 09:43 carvedilol 12.5 mg Oral tab 1 tab 2 times per day [Active]; Wellbutrin 150 mg daily bp Oral 2 tabs daily [Active]; Zocor 80 mg Oral tab daily [Active]; multac 400mg daily [Active]; omeprazole 40 mg Oral cpDR 1 cap once daily [Active]; aspirin 81 mg Oral chew 1 tab once daily [Active]; Combivent Inhl 8 inhalations daily and prn [Active]; prednisone 10 mg Oral tab 1 tab once daily [Active]; finasteride 5 mg Oral tab 1 tab once daily [Active]; furosemide 40 mg Oral tab 1 tab once daily [Active]; allopurinol 300 mg Oral tab 1 tab 2 times per day [Active]; Xanax 0.5 mg Oral tab 1 tab daily [Active]; anoro ellipta 1 inhalation daily [Active]; - PMHx: 09:43 COPD; Hypertension; Renal Disease; bp - PSHx: 09:43 Tonsillectomy; Appendectomy; HEMORRHOIDECTOMY; LUMBAR LAMINECTOMY; PAROTIDECTOMY; bp - Immunization history:: Adult Immunizations up to date. - Social history:: Smoking status: Patient/guardian denies using tobacco. - Ebola Screening: : Patient negative for fever greater than or equal to 101.5 degrees Fahrenheit, and additional compatible Ebola Virus Disease symptoms Patient denies exposure to infectious person Patient denies travel to an Ebola-affected area in the 21 days before illness onset No symptoms or risks identified at this time. ROS: 09:33 Eyes: Negative for injury, pain, redness, and discharge. cp 09:33 Constitutional: Negative for body aches, chills, fever, poor PO intake. 09:33 ENT: Negative for drainage from ear(s), ear pain, sore throat, difficulty swallowing, cp difficulty handling secretions. 09:33 Cardiovascular: Negative for chest pain, edema, palpitations. 09:33 Respiratory: Positive for shortness of breath, at rest. Negative for hemoptysis. 09:33 Abdomen/GI: Negative for abdominal pain, vomiting, diarrhea, constipation, black/tarry stool, rectal bleeding. 09:33 Back: Negative for pain at rest, pain with movement. 09:33 Skin: Negative for cellulitis, rash. 09:33 Neuro: Negative for altered mental status, headache, syncope, weakness. 09:33 All other systems are negative. cp Exam: 09:36 ECG was reviewed by the Attending Physician. cp 09:40 Constitutional: The patient appears alert, awake, non-diaphoretic, non-toxic, well cp developed, well nourished, in obvious distress, mildly distressed. 09:40 Head/Face: Normocephalic, atraumatic. cp 09:40 Eyes: Periorbital structures: appear normal, Pupils: equal, round, and reactive to cp light and accomodation, Extraocular movements: intact throughout, Conjunctiva: normal, no exudate, no injection, Sclera: no appreciated abnormality, Lids and lashes: appear normal, bilaterally. 09:40 ENT: External ear(s): are unremarkable, Ear canal(s): are normal, clear, TM's: cp dullness, bilaterally, Nose: is normal, Mouth: Lips: moist, Oral mucosa: pink and intact, moist, Posterior pharynx: is normal, airway is patent, no erythema, no exudate. 09:40 Neck: ROM/movement: is normal, is supple, without pain, no range of motions limitations, no nuchal rigidity. 09:40 Chest/axilla: Inspection: normal, Palpation: is normal, no crepitus, no tenderness. 09:40 Cardiovascular: Rate: normal, Rhythm: regular, Edema: is not appreciated, JVD: is not appreciated. 09:40 Respiratory: mild respiratory distress is noted, Respirations: labored breathing, that is mild, Breath sounds: decreased breath sounds, that are moderate, throughout. 09:40 Abdomen/GI: Inspection: obese Palpation: abdomen is soft and non-tender, in all quadrants. 09:40 Back: pain, is absent, ROM is normal. 09:40 Skin: cellulitis, is not appreciated, no rash present. 09:40 Neuro: Orientation: to person, place \T\ time. Mentation: is normal, Cerebellar function: is grossly normal, Motor: moves all fours, strength is normal, Sensation: is normal. Vital Signs: 09:31 Pulse Ox 97% on 4 lpm NC; hj 09:31 BP 116 / 67; Pulse 74; Resp 18; Temp 97; Pulse Ox 83% on R/A; Weight 81.65 kg; Height 5 bp ft. 10 in. (177.80 cm); 11:30 BP 132 / 72; Pulse 60; Resp 19; Pulse Ox 97% on 2 lpm NC; bp 09:31 Body Mass Index 25.83 (81.65 kg, 177.80 cm) bp MDM: 09:32 Patient medically screened. cp 11:35 Data reviewed: vital signs, nurses notes, lab test result(s), EKG, radiologic studies, cp plain films, and as a result, I will admit patient. 11:35 Test interpretation: by ED physician or midlevel provider: ECG, plain radiologic cp studies. Response to treatment: the patient's symptoms have mildly improved after treatment. 11:40 Physician consultation: A Larry VEGAS was called at 11:40, left message on voicemail. cp 12:15 Physician consultation: A Larry VEGAS was called at 12:15, was contacted at 12:15, cp regarding admission, to the telemetry unit. patient's condition. 09/07 09:35 Order name: Basic Metabolic Panel; Complete Time: 10:28 cp 09/07 10:29 Interpretation: Normal except: CO2 39; GLUC 197; BUN 27; CRE 1.37; GFR 49. cp 09/07 09:35 Order name: CBC with Diff; Complete Time: 10:28 cp 09/07 10:07 Interpretation: Normal except: WBC 14.9; RBC 4.28; HGB 10.9; HCT 37.0; MCH 25.4; MCHC cp 29.4; RDW 17.8; ZAKI% 88.5; LYM% 4.7; NEUT A 13.2. / 09:35 Order name: LFT's; Complete Time: 10:28 cp 03/ 10:29 Interpretation: Normal except: ALB 2.9; GLOB 3.7; A/G 0.8. cp 09/07 09:35 Order name: Magnesium; Complete Time: 10:28 cp / 09:35 Order name: NT PRO-BNP; Complete Time: 10:28 cp 09/07 09:35 Order name: PT-INR; Complete Time: 10:07 cp 09/07 09:35 Order name: Troponin (emerg Dept Use Only); Complete Time: 10:28 cp 09/07 09:35 Order name: Blood Culture Adult (2) cp 09/07 09:35 Order name: Procalcitonin; Complete Time: 10:28 cp 09/07 09:35 Order name: Lactate; Complete Time: 10:28 cp 09/07 09:35 Order name: Influenza Screen (a \T\ B); Complete Time: 10:28 cp 12 10:00 Order name: CBC Smear Scan; Complete Time: 10:28 EDMS / 12:23 Order name: Troponin I EDHI 09/07 12:23 Order name: Troponin I EDHI 09/07 09:35 Order name: XRAY Chest (1 view); Complete Time: 10:28 cp 09/07 09:35 Order name: EKG; Complete Time: 09:36 cp 09/07 09:35 Order name: Cardiac monitoring; Complete Time: 09:37 cp 09/07 09:35 Order name: EKG - Nurse/Tech; Complete Time: 09:37 cp 09/07 09:35 Order name: IV Saline Lock; Complete Time: 09:45 cp / 09:35 Order name: Labs collected and sent; Complete Time: 09:45 cp / 09:35 Order name: O2 Per Protocol; Complete Time: 09:37 cp 09/07 09:35 Order name: O2 Sat Monitoring; Complete Time: 09:37 cp 09/07 09:35 Order name: BIPAP 09/07 10:31 Order name: CT Chest W/ Con; Complete Time: 11:27 cp 0312 12:17 Order name: Diet Regular; Complete Time: 12:17 cp EC:36 Rate is 70 beats/min. Rhythm is regular. MD interval is prolonged at 282 msec. QRS cp interval is prolonged at 104 msec. QT interval is normal. Interpreted by me. Reviewed by me. Administered Medications: 09:44 Drug: Albuterol - atroVENT (3:1) (2.5 mg - 0.5 mg) 3 ml Route: Nebulizer; hj 09:58 Follow up: Response: No adverse reaction; Wheezing diminished hj 09:44 Drug: SOLU-Medrol 80 mg Route: IVP; Site: right antecubital; hj 09:57 Follow up: Response: No adverse reaction hj 10:30 Drug: NS 0.9% 250 ml Route: IV; Rate: bolus; Site: right antecubital; hj Disposition: 14:48 Co-signature as Attending Physician, Woody Gamez MD. rn Disposition: 09/07/18 12:17 Hospitalization ordered by Goyo Juarez for Inpatient Admission. Preliminary diagnosis are Chronic obstructive pulmonary disease with (acute) exacerbation, Dyspnea. - Bed requested for Telemetry/MedSurg (Inpatient). - Status is Inpatient Admission. aa5 - Condition is Stable. - Problem is an acute exacerbation. - Symptoms have improved. UTI on Admission? No Signatures: Dispatcher [employer] EDMS Woody Gamez MD MD rn Calderon, Audri, RN RN aa5 Kalen Azevedo RN RN hj Page, Corey, PA PA cp Mary Faith RN RN df Jon Cruz RN RN bp Corrections: (The following items were deleted from the chart) 13:44 12:17 Hospitalization Ordered by A Larry VEGAS for Inpatient Admission. Preliminary df diagnosis is Chronic obstructive pulmonary disease with (acute) exacerbation; Dyspnea. Bed requested for Telemetry/MedSurg (Inpatient). Status is Inpatient Admission. Condition is Stable. Problem is an acute exacerbation. Symptoms have improved. UTI on Admission? No. cp 14:27 13:44 09/07/2018 12:17 Hospitalization Ordered by A Larry VEGAS for Inpatient Admission. aa5 Preliminary diagnosis is Chronic obstructive pulmonary disease with (acute) exacerbation; Dyspnea. Bed requested for Telemetry/MedSurg (Inpatient). Status is Inpatient Admission. Condition is Stable. Problem is an acute exacerbation. Symptoms have improved. UTI on Admission? No. df
--- NOTE | 2018-09-07 12:17 | ER ---
Nurse's Notes [facility] Name: Mike Stewart Age: 83 yrs Sex: Male : 1935 Arrival Date: 09/07/2018 Time: 09:29 Bed 8 Private MD: Diagnosis: Chronic obstructive pulmonary disease with (acute) exacerbation;Dyspnea Presentation: 09/07 09:36 Presenting complaint: Patient states: SOB SINCE Y/D. Transition of care: patient was bp not received from another setting of care. Onset of symptoms was September 06, 2018. Risk Assessment: Do you want to hurt yourself or someone else? Patient reports no desire to harm self or others. Initial Sepsis Screen: Does the patient meet any 2 criteria? RR > 20 per min. No. Patient's initial sepsis screen is negative. Does the patient have a suspected source of infection? Yes: Productive cough/pneumonia. Care prior to arrival: None. 09:36 Method Of Arrival: Wheelchair bp 09:36 Acuity: ARIELA 2 bp Triage Assessment: 09:43 General: Appears distressed, comfortable, obese, Behavior is cooperative, appropriate bp for age, anxious. Pain: Denies pain. EENT: No deficits noted. Neuro: Level of Consciousness is awake, alert, obeys commands, Oriented to person, place, time, situation, Appropriate for age. Cardiovascular: Rhythm is sinus rhythm. Respiratory: Reports shortness of breath Airway is patent Respiratory effort is even, labored, Breath sounds are diminished Onset: The symptoms/episode began/occurred yesterday, the patient has moderate shortness of breath. GI: No signs and/or symptoms were reported involving the gastrointestinal system. : No signs and/or symptoms were reported regarding the genitourinary system. Derm: No deficits noted. Musculoskeletal: Circulation, motion, and sensation intact. Range of motion: intact in all extremities. Historical: - Allergies: 09:43 LITHIUM DERIVITIVES; bp - Home Meds: :43 carvedilol 12.5 mg Oral tab 1 tab 2 times per day [Active]; Wellbutrin 150 mg daily bp Oral 2 tabs daily [Active]; Zocor 80 mg Oral tab daily [Active]; multac 400mg daily [Active]; omeprazole 40 mg Oral cpDR 1 cap once daily [Active]; aspirin 81 mg Oral chew 1 tab once daily [Active]; Combivent Inhl 8 inhalations daily and prn [Active]; prednisone 10 mg Oral tab 1 tab once daily [Active]; finasteride 5 mg Oral tab 1 tab once daily [Active]; furosemide 40 mg Oral tab 1 tab once daily [Active]; allopurinol 300 mg Oral tab 1 tab 2 times per day [Active]; Xanax 0.5 mg Oral tab 1 tab daily [Active]; anoro ellipta 1 inhalation daily [Active]; - PMHx: 09:43 COPD; Hypertension; Renal Disease; bp - PSHx: 09:43 Tonsillectomy; Appendectomy; HEMORRHOIDECTOMY; LUMBAR LAMINECTOMY; PAROTIDECTOMY; bp - Immunization history:: Adult Immunizations up to date. - Social history:: Smoking status: Patient/guardian denies using tobacco. - Ebola Screening: : Patient negative for fever greater than or equal to 101.5 degrees Fahrenheit, and additional compatible Ebola Virus Disease symptoms Patient denies exposure to infectious person Patient denies travel to an Ebola-affected area in the 21 days before illness onset No symptoms or risks identified at this time. Screenin:47 Abuse screen: Denies threats or abuse. Denies injuries from another. Nutritional bp screening: No deficits noted. Tuberculosis screening: No symptoms or risk factors identified. Fall Risk None identified. Assessment: 09:47 Reassessment: PT DECLINING BIPAP AT THIS TIME. S/S IMPROVED ON NASAL CANNULA. bp Cardiovascular: Rhythm is sinus rhythm. 11:54 Reassessment: ALL CURRENT ORDERS COMPLETED, VS STABLE ON MONITOR, SP02 >92 ON 2LNC. RAD bp RESULTS PENDING. Vital Signs: 09:31 Pulse Ox 97% on 4 lpm NC; hj 09:31 BP 116 / 67; Pulse 74; Resp 18; Temp 97; Pulse Ox 83% on R/A; Weight 81.65 kg; Height 5 bp ft. 10 in. (177.80 cm); 11:30 BP 132 / 72; Pulse 60; Resp 19; Pulse Ox 97% on 2 lpm NC; bp 09:31 Body Mass Index 25.83 (81.65 kg, 177.80 cm) bp ED Course: 09:29 Patient arrived in ED. hj 09:32 Eric Weiss PA is PHCP. cp 09:32 Woody Gamez MD is Attending Physician. cp 09:35 Jon Cruz, RN is Primary Nurse. bp 09:38 Triage completed. bp 09:42 EKG done, by technical business analyst. reviewed by Eric DEUTSCH. at1 09:46 Arm band placed on. bp 09:47 Patient has correct armband on for positive identification. Placed in gown. Bed in low bp position. Call light in reach. Side rails up X2. Adult w/ patient. auto fleet manager on. Pulse ox on. NIBP on. 09:48 X-ray completed. Portable x-ray completed in exam room. Patient tolerated procedure jb2 well. 09:48 Inserted saline lock: 18 gauge in right antecubital area, using aseptic technique. pc1 09:49 XRAY Chest (1 view) In Process Unspecified. EDMS 11:08 CT Chest W/ Con In Process Unspecified. EDMS 12:15 Goyo Juarez MD is Hospitalizing Provider. cp Administered Medications: 09:44 Drug: Albuterol - atroVENT (3:1) (2.5 mg - 0.5 mg) 3 ml Route: Nebulizer; hj 09:58 Follow up: Response: No adverse reaction; Wheezing diminished hj 09:44 Drug: SOLU-Medrol 80 mg Route: IVP; Site: right antecubital; hj 09:57 Follow up: Response: No adverse reaction hj 10:30 Drug: NS 0.9% 250 ml Route: IV; Rate: bolus; Site: right antecubital; hj Outcome: 12:17 Decision to Hospitalize by Provider. cp 14:27 Patient left the ED. aa5 Addendum: 14:20 Addendum: Other Pt transported to room 208 via wheelchair, with oxygen, with chart, a a5 with commercial maintenance technician. Report given to JESE Barbosa. Signatures: Dispatcher [employer] EDMS Eb Lopez jb2 Melany Hooper, RN RN aa5 Renetta Curiel, student assistant EKG Tat1 Kalen Azevedo, JESE RN Eric Hall PA PA cp Jon Cruz, RN RN Michael Gan pc1 Corrections: (The following items were deleted from the chart) 09:33 09:31 Pulse Ox 97% 3 lpm Nasal Cannula; hj hj 09:46 09:31 BP 116 / 67; Pulse 74bpm; Resp 18bpm; Pulse Ox 83% RA; hj bp
[2018-09-07] MEDS ORDERED: ACETAMINOPHEN 500 MG TAB PO PRN (12:19)
[2018-09-07 15:00] VITALS: BMI 25.9
[2018-09-07] MEDS: ALBUTEROL 2.5 MG/3 ML NEB SOL NEB SCH ×2 (15:07→20:00)
[2018-09-07] MEDS: IPRATROPIUM BROM 0.5MG/2.5ML NEB SCH ×2 (15:07→20:00)
[2018-09-07] MEDS ORDERED: PROMETHAZINE 25 MG TABLET PO PRN (16:17)
[2018-09-07] MEDS: METHYLPREDNISOLONE 125 MG INJ IV SCH (16:54)
[2018-09-07] MEDS: METOCLOPRAMIDE 5 MG TAB PO SCH ×2 (16:54→20:56)
[2018-09-07] MEDS: ENOXAPARIN 40 MG/0.4 ML SQ SCH (16:55)
[2018-09-07] MEDS: CARVEDILOL 12.5 MG TAB PO SCH (20:55)
[2018-09-07] MEDS: DRONEDARONE 400 MG TAB PO SCH (20:56)
[2018-09-07] MEDS: ALPRAZOLAM 0.5 MG TABLET PO SCH (20:56)
[2018-09-07] MEDS: ATORVASTATIN 40 MG TAB PO SCH (20:56)
[2018-09-07 22:36] LABS: Urine Appearance CLEAR; Urine Bilirubin NEGATIVE (NEG); Urine Blood TRACE (NEG); Urine Color YELLOW; Urine Glucose NEGATIVE (NEG); Urine Protein NEGATIVE (NEG); Urine Specific Gravity >=1.030 (1.005-1.030); Urine Urobilinogen 0.2 mg/dL (0.2-1.0)
[2018-09-07 22:39] LABS: Urine Microscopic Reflex ORDER UMIC
[2018-09-07 23:47] LABS: Urine Bacteria <20 /HPF (NONE SEEN); Urine Culture Reflex Order NOT NEEDED
[2018-09-08] MEDS: METHYLPREDNISOLONE 125 MG INJ IV SCH ×3 (00:06→17:28)
[2018-09-08] MEDS: IPRATROPIUM BROM 0.5MG/2.5ML NEB SCH ×6 (04:00→20:00)
[2018-09-08] MEDS: ALBUTEROL 2.5 MG/3 ML NEB SOL NEB SCH ×6 (04:00→20:00)
[2018-09-08] MEDS: METOCLOPRAMIDE 5 MG TAB PO SCH ×4 (05:40→22:06)
[2018-09-08] MEDS: PANTOPRAZOLE 40MG TABLET PO SCH (05:40)
[2018-09-08 06:05] LABS: Potassium 4.6 mmol/L (3.5-5.1)
[2018-09-08 06:08] LABS: Absolute Lymphocytes (CBC) 0.5 K/uL (0.7-4.9); Absolute Monocytes 0.2 K/uL (0.1-1.3); Absolute Neutrophil 9.3 K/uL (1.8-8.0); Basophils % 0.1 % (0-1.3); Hematocrit 33.5 % (39.6-49.0); Lymphocytes % 4.8 % (15.3-44.8); MPV 8.4 fL (7.6-11.3); Monocytes % 1.9 % (3.3-12.3); RBC Red Blood Cell Count 3.96 M/uL (4.33-5.43)
[2018-09-08] MEDS: ASPIRIN EC 81 MG TAB PO SCH (08:29)
[2018-09-08] MEDS: FINASTERIDE 5 MG TAB PO SCH (08:29)
[2018-09-08] MEDS: FUROSEMIDE 40 MG TABLET PO SCH (08:29)
[2018-09-08] MEDS: CARVEDILOL 12.5 MG TAB PO SCH ×2 (08:30→22:04)
[2018-09-08] MEDS: DRONEDARONE 400 MG TAB PO SCH ×2 (08:30→22:05)
[2018-09-08] MEDS: BUPROPRION HCL S.R. 150MG TAB PO SCH (08:31)
[2018-09-08] MEDS: ALLOPURINOL 300 MG TAB PO SCH (08:31)
[2018-09-08] MEDS ORDERED: HOME MED 1 EA UNK (Omeprazole [Prilosec] 40 MG) PO SCH (09:00)
[2018-09-08] MEDS ORDERED: HOME MED 1 EA UNK (Simvastatin [Zocor] 80 MG) PO SCH (09:00)
--- NOTE | 2018-09-08 17:15 | HP ---
Date of Admission: 09/08/2018 Chief Complaint: Shortness of breath. History Of Present Illness: This is an 83-year-old very pleasant male patient with history of severe COPD, who is on chronic steroid therapy with prednisone 10 mg daily and on continuous home oxygen. He was doing fine in his normal usual state of health until Thursday of this week, he noted to have inc reased shortness of breath, so he took prednisone 20 mg on Thursday, and 30 mg on Thursday, which was ye , but his breathing was not improving and with worsening of shortness of breath, he came into emergency room. After he was evaluated, he was admitted to the hospital. He denies any expectoratio n. Denies any hemoptysis. No fever, chills. Lately, he has been having lot of trouble with nausea and we changed his medication from omeprazole to Dexilant and added metoclopramide, and he has respon ded well to that and nausea problem has improved now. Denies any abdominal pain with the nausea. Th is morning when I saw him, he was feeling better compared to yesterday. Allergies: TO LITHIUM. BUPROPION ACCORDING TO OFFICE RECORDS. Medications: List reviewed. Review of Systems: Respiratory: As mentioned above. GI: As mentioned above. All other systems reviewed and negative. Past Surgical History: Significant for appendectomy and tonsillectomy. Family History: Significant for congestive heart failure, epilepsy, abdominal aortic aneurysm. Social History: Prior history of smoking, not at present time. Use of alcohol negative. Past Medical History: Adrenal insufficiency, on chronic steroid therapy, COPD, diverticulosis, leg s welling, gallstones, chronic kidney disease stage 3, atrial fibrillation which is paroxysmal, impaire d fasting glucose, hypertension, hyperlipidemia. Physical Examination: Vital Signs: This morning, temperature 98.8, pulse 65, respiratory rate 18, blood pressure 114/58, o xygen saturation 93%. Yesterday, when he came into the ER temperature 97, pulse 74, respiratory rate 18, blood pressure 116/67. Oxygen saturation was 83% on 4 L nasal cannula oxygen at that time. Hei ght 5 feet 10 inches, weight 181 pounds. General: Awake, alert, oriented, not in distress. HEENT: Head atraumatic, normocephalic. Conjunctivae nonerythematous. Sclerae white. Mouth, no thr ush or edema noted. Ears/Nose, no mass, lesion, discharge noted. Neck: Supple. No JVD, lymph nodes, bruit, thyromegaly noted. Lungs: Bilateral good equal air entry. Presence of some scattered wheezing with minimum basal rales . Not in any respiratory distress. Heart: Normal heart sounds, no murmur or gallop. Abdomen: Soft, bowel sounds normal. No guarding, rigidity, tenderness, mass, hepatosplenomegaly, dis tention, or bruit noted. Extremities: No leg edema. No calf tenderness. Skin: No rash, ulcer, cellulitis. Lymphatics: No lymph node enlargement in neck, supraclavicular, infraclavicular region. Neuro: No focal neurological deficit. Chest: Unremarkable. External Genitalia: Deferred. Rectal: Deferred. Laboratory Data: Yesterday, white count 14.9, hemoglobin 10.9, platelets 281. Today, white count 9. 9, hemoglobin 10.1, platelets 265. Yesterday, sodium 145, potassium 4.2, chloride 101, bicarb 39, BU N 27, creatinine 1.37, glucose 197. Liver function tests unremarkable. Troponin less than 0.02 x3. Procalcitonin less than 0.05. Today, sodium 139, potassium 4.6, chloride 100, bicarb 36, BUN 34, cr eatinine 1.42, glucose 206. Urinalysis unremarkable. Influenza A and B test negative. CT scan of t he chest done in the emergency room with contrast shows a spiculated soft tissue mass of 3.8 cm x 3.4 cm adjacent to the left hilum with internal cavitary component. 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 The chest x-ray shows emphysematous changes with ill defined opacity in both lung bases and left perihilar, moderate size. Impression: 1.Acute exacerbation of chronic obstructive pulmonary disease. 2.Chronic kidney disease, stage 3. 3.Anemia due to chronic kidney disease. 4.Adrenal insufficiency. 5.Chronic steroid therapy. 6.Diverticulosis. 7.Hypertension. 8.Hyperlipidemia. 9.Nausea. 10.Gallstones. 11.Gastroesophageal reflux disease. 12.Impaired fasting glucose. Plan: Admit the patient to hospital for further evaluation and management of this problem. The mahi ent is appropriate for inpatient and is expected to spend 2 midnights in hospital. We will continue home medications. IV steroids will be given. Oxygen nebulizer treatment will be continued per order . We will go ahead and give DVT prophylaxis per order using Lovenox. Home medications will be raúl nued per order. We will get abdominal ultrasound done tomorrow for further evaluation, and the patie nt was made aware of the CT scan finding, and I am concerned about possibility of lung cancer. We ta lked about where he would like to have biopsy and further evaluation and management of this lung mass with our concerns about possibility of lung cancer, and he would prefer to go to [place] to [facility] on outpatient basis. We will go ahead and refer him to [facility]. JARVIS/MANOJ Voice ID: [id number]
[2018-09-08] MEDS: ENOXAPARIN 40 MG/0.4 ML SQ SCH (17:28)
[2018-09-08] MEDS: ALPRAZOLAM 0.5 MG TABLET PO SCH (22:04)
[2018-09-08] MEDS: ATORVASTATIN 40 MG TAB PO SCH (22:06)
[2018-09-09 00:12] VITALS: TEMP 97.5
[2018-09-09] MEDS: METHYLPREDNISOLONE 125 MG INJ IV SCH ×2 (00:24→08:48)
[2018-09-09] MEDS: IPRATROPIUM BROM 0.5MG/2.5ML NEB SCH ×4 (04:00→11:30)
[2018-09-09] MEDS: ALBUTEROL 2.5 MG/3 ML NEB SOL NEB SCH ×4 (04:00→11:30)
[2018-09-09] MEDS: DRONEDARONE 400 MG TAB PO SCH (08:48)
[2018-09-09] MEDS: PANTOPRAZOLE 40MG TABLET PO SCH (08:48)
[2018-09-09] MEDS: FINASTERIDE 5 MG TAB PO SCH (08:48)
[2018-09-09] MEDS: FUROSEMIDE 40 MG TABLET PO SCH (08:48)
[2018-09-09] MEDS: BUPROPRION HCL S.R. 150MG TAB PO SCH (08:48)
[2018-09-09] MEDS: METOCLOPRAMIDE 5 MG TAB PO SCH ×2 (08:48→11:32)
--- NOTE | 2018-09-09 08:48 | RAD REPORT ---
EXAM DESCRIPTION: US - Abdomen Exam Complete - 09/09/2018 8:21 am CLINICAL HISTORY: Abdominal pain COMPARISON: none FINDINGS: The liver has a mildly inhomogeneous echotexture. Multiple gallstones. The gallbladder wall is not thickened. Common bile duct measures 4 millimeters The pancreas is not well visualized secondary overlying bowel gas The right kidney measures 10 centimeters with a normal echotexture. The left kidney measures 11 centimeters with a normal echotexture. Nonobstructing 6 millimeter calcul us. Bilateral renal cysts. Largest extends off the right kidney measuring 5.4 centimeters The spleen measures 9 centimeters. The abdominal aorta and inferior vena cava appear unremarkable Small umbilical hernia is suspected IMPRESSION: Cholelithiasis without evidence cholecystitis
[2018-09-09] MEDS: ASPIRIN EC 81 MG TAB PO SCH (08:49)
[2018-09-09] MEDS: ALLOPURINOL 300 MG TAB PO SCH (08:49)
[2018-09-09] MEDS: CARVEDILOL 12.5 MG TAB PO SCH (08:49)
[2018-09-09 08:50] VITALS: BP 154/68
--- NOTE | 2018-09-09 10:26 | EKG ---
Test Date: 2018-09-07 Test Time: 09:31:58 Sports Umpire: MARYLIN MEASUREMENT RESULTS: Intervals: Rate: 70 WI: 282 QRSD: 104 QT: 414 QTc: 447 [place]: P: 43 WI: 282 QRS: 60 T: 84 INTERPRETIVE STATEMENTS: Sinus rhythm with 1st degree AV block Otherwise normal ECG Compared to ECG 06/21/2018 09:44:58 No significant changes Electronically Signed On 09-07-18 12:37:54 CDT by Noel Alvarez
--- NOTE | 2018-09-09 13:00 | DS ---
Date of Discharge: 09/09/2018 Disposition: The patient will be discharged to go home. Physical Examination: HEENT: Unremarkable. Lungs: Clear to auscultation. Heart: Sounds normal. Abdomen: Soft. Bowel sounds normal. No guarding, rigidity, tenderness, or distention. Extremities: No leg edema. Discharge Medications And Instructions: 1.Continue all prior home medications. 2.Follow up at my office in 2 weeks. 3.My office will initiate outpatient referral to [facility] for lung mass and the patient was advis ed to contact my office week after next, if he does not hear anything from [facility], and he was al so told that once he gets appointment at [facility], he should call office to notify that as well. 4.Prednisone 10 mg, the patient to take 2 tablets by mouth 2 times a day for 5 days, then 2 tablets daily for 5 days, then 1 tablet daily to continue. 5.Continue all other prior home medication. Labs Done During This Hospitalization: Influenza A and B tests negative. Blood culture 1 bottle mabel wing gram-positive cocci in cluster, which I believe is going to be likely skin contaminant, as the p atient does not appear to be septic at all. The initial white count was 14.9, hemoglobin 10.9, plate lets 281, and yesterday white count came down to 9.9 without any antibiotic, hemoglobin 10.1, platele ts 265. Chemistry was unremarkable except BUN 27, creatinine 1.37. Liver function tests unremarkabl e. Troponin less than 0.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 Please see dictated H and P for more information. The patient had noted increased shortness of breath for 2-3 days before he came into emergency room and he took 30 mg predn isone on Thursday and 20 mg prednisone on Thursday, and did not improve and came into emergency room. D enies any expectoration. No fever. No chills. There was no evidence of any infection. After he wa s evaluated in ER, he was admitted to the hospital with acute exacerbation of COPD. His nausea probl em has improved since we made changes in his medication the last week on outpatient basis. Today, th e patient had abdominal ultrasound done. We will follow up on the results. He has a history of gall stones. As long as there is no other concerning changes pertaining to it, we will not need to pursue any further intervention, but we will follow up on the ultrasound results. If nausea problem starts again, then he will follow up with precipitator operator, Dr. Padilla. I did talk to him about this abn ormality noted on the CT scan, and per his preference, we will assist him with appointment at [facility] he in my office, so we will initiate this process today. His shortness of breath problem has impro berta with IV steroid. One bottle of blood culture grew gram-positive cocci in cluster, which I believ e is going to be likely skin contaminant, and we will follow up on that result. The patient does not appear to have any infection or sepsis at all. The patient will be discharged today in stable condi tion with above-mentioned medications and instructions. Final Diagnoses: 1.Acute exacerbation of chronic obstructive pulmonary disease. 2.Left lung mass. 3.Chronic kidney disease, stage 3. 4.Anemia due to chronic kidney disease. 5.Adrenal insufficiency. 6.Chronic steroid therapy. 7.Diverticulosis. 8.Hypertension. 9.Hyperlipidemia. 10.Nausea. 11.Gallstones. 12.Gastroesophageal reflux disease. 13.Impaired fasting glucose. JARVIS/MODL Voice ID: [id number] Report ID: [id number]
[2018-09-09 13:01] VITALS: O2SAT 94
== END 2018-09-09 13:11 | disposition home or self-care (01) | DRG 191 ==
LOC: ER 09:30 → ERHOLD 12:22 → 2ND 14:15
PROVIDERS: ADMIT Internal Medicine; ATTEND Internal Medicine
DX: J44.1 Chronic obstructive pulmonary disease with (acute) exacerbation (principal); E27.40 Unspecified adrenocortical insufficiency; Z79.51 Long term (current) use of inhaled steroids; Z79.52 Long term (current) use of systemic steroids; Z99.81 Dependence on supplemental oxygen; R91.8 Other nonspecific abnormal finding of lung field; I12.9 Hypertensive chronic kidney disease with stage 1 through stage 4 chronic kidney disease, or unspecified chronic kidney disease; N18.3 Chronic kidney disease, stage 3 (moderate); D63.1 Anemia in chronic kidney disease; K57.90 Diverticulosis of intestine, part unspecified, without perforation or abscess without bleeding; E78.5 Hyperlipidemia, unspecified; K21.9 Gastro-esophageal reflux disease without esophagitis; R73.01 Impaired fasting glucose; Z87.891 Personal history of nicotine dependence
CPT/HCPCS: 36415; 71045; 71260; 76700; 80048; 80076; 81003; 81015; 83605; 83735; 83880; 84145; 84484; 85025; 85610; 87040; 87205; 87804; 93005; 94640; 94760; 96374; 96375; 99285; J1650; J2920; J2930; Q9967